=== PATIENT | male | born 1970 | race Caucasian/White ===

== ENCOUNTER 2024-05-07 08:05 | Emergency (ER) | payer OTHER ==
[~2024-05-07] VITALS: Ht 175.3 cm; Wt 99.0 kg
[2024-05-07 08:08] VITALS: O2SAT 99
[2024-05-07] MEDS: ACETAMINOPHEN 325MG TABLET PO NR (10:12)
[2024-05-07] MEDS: ACETAMINOPHEN 325MG TABLET PO ONE (10:12)
[2024-05-07] MEDS ORDERED: TOPUD PO (11:23)
[2024-05-07 11:55] VITALS: BP 150/75; PULSE 88; RESP 18; TEMP 36.66960; O2SAT 99
== END 2024-05-07 12:17 | disposition home or self-care (01) ==
LOC: ER 08:18
DX: R51.9 Headache, unspecified (principal); R07.89 Other chest pain; R10.9 Unspecified abdominal pain; I10 Essential (primary) hypertension; V49.9XXA Car occupant (driver) (passenger) injured in unspecified traffic accident, initial encounter; Y93.89 Activity, other specified; Y92.89 Other specified places as the place of occurrence of the external cause; Y99.8 Other external cause status
CPT/HCPCS: 71250; 74176; 99284